=== PATIENT | female | born 1975 | race Caucasian/White ===

== ENCOUNTER 2017-11-27 20:54 | Emergency (ER) | payer MEDICAID | END 2017-11-28 00:40 | disposition home or self-care (01) | LOC: FTE 11-28 00:40 | DX: L03.032 Cellulitis of left toe (principal) | CPT/HCPCS: 99283; Z7502 ==

== ENCOUNTER 2018-02-28 20:13 | Emergency (ER) | payer MEDICAID ==
[2018-02-28] MEDS: IBUPROFEN 600 MG TAB PO (21:20)
== END 2018-02-28 22:00 | disposition home or self-care (01) ==
LOC: FTE 20:13
DX: L03.032 Cellulitis of left toe (principal)
CPT/HCPCS: 99284; Z7502

== ENCOUNTER 2018-06-26 13:01 | Emergency (ER) | payer MEDICAID ==
[2018-06-26] MEDS: DIPHTH/TET/ACEL PERTUSS (ADULT) 0.5 ML VIAL IM* (13:43)
[2018-06-26] MEDS: LIDOCAINE 1% (MDV) 10 ML INJ INJ (13:46)
== END 2018-06-26 14:41 | disposition home or self-care (01) ==
LOC: FTE 13:01
DX: S61.011A Laceration without foreign body of right thumb without damage to nail, initial encounter (principal); W26.8XXA Contact with other sharp object(s), not elsewhere classified, initial encounter; Y92.9 Unspecified place or not applicable; Z23 Encounter for immunization
CPT/HCPCS: 12001; 90471; 90715; 99283-25

== ENCOUNTER 2018-12-06 15:31 | Emergency (ER) | payer MEDICAID | END 2018-12-06 19:08 | disposition home or self-care (01) | LOC: FTE 15:31 | DX: K60.2 Anal fissure, unspecified (principal) | CPT/HCPCS: 99284; Z7502 ==

== ENCOUNTER 2019-04-28 08:01 | Emergency (ER) | payer MEDICAID | END 2019-04-28 08:42 | disposition home or self-care (01) | LOC: FTE 08:01 | DX: T22.011A Burn of unspecified degree of right forearm, initial encounter (principal); X19.XXXA Contact with other heat and hot substances, initial encounter; Y92.9 Unspecified place or not applicable | CPT/HCPCS: 99283; Z7502 ==

== ENCOUNTER 2019-05-18 07:51 | Emergency (ER) | payer MEDICAID | END 2019-05-18 08:30 | disposition home or self-care (01) | LOC: FTE 08:30 | DX: J02.9 Acute pharyngitis, unspecified (principal) | CPT/HCPCS: 99283; Z7502 ==

== ENCOUNTER 2019-06-20 18:14 | Emergency (ER) | payer MEDICAID ==
[2019-06-20] MEDS: ACETAMINOPHEN 325 MG TAB PO (19:08)
== END 2019-06-20 19:54 | disposition home or self-care (01) ==
LOC: FTE 18:14
DX: S99.922A Unspecified injury of left foot, initial encounter (principal); X50.1XXA Overexertion from prolonged static or awkward postures, initial encounter; Y92.9 Unspecified place or not applicable
CPT/HCPCS: 73630; 73630-LT; 99283-25